=== PATIENT | female | born 1995 | race African-American/Black ===

== ENCOUNTER 2023-05-17 01:48 | Emergency (ER) | payer OTHER, SELFPAY ==
[2023-05-17] MEDS ORDERED: fentaNYL 50 mcg/mL 1 mL Vial ONE (01:58)
[2023-05-17] MEDS ORDERED: Sulfameth/Trimethoprim DS 800-160mg TAB ONE (01:58)
[2023-05-17] MEDS ORDERED: Boostrix 0.5 ML (Tdap) VIAL (>/=7 yrs of age) ONE (01:59)
== END 2023-05-17 03:30 | disposition home or self-care (01) ==
LOC: EEVIPCON 01:48 → CSHERS 01:48
DX: S91.032A Puncture wound without foreign body, left ankle, initial encounter (principal); X94.0XXA Assault by shotgun, initial encounter; Y93.01 Activity, walking, marching and hiking
CPT/HCPCS: 90471; 90715; 96374; J3010

== ENCOUNTER 2023-05-22 14:35 | Outpatient (CLI) | payer OTHER | END 2023-05-22 14:36 | disposition home or self-care (01) | LOC: CSHWCC 14:35 | PROVIDERS: ATTEND Physician Assistant | DX: L97.302 Non-pressure chronic ulcer of unspecified ankle with fat layer exposed (principal); X93.XXXS Assault by handgun discharge, sequela | CPT/HCPCS: 99214; G0463 ==

== ENCOUNTER 2023-05-30 13:06 | Outpatient (CLI) | payer OTHER | END 2023-05-30 13:07 | disposition home or self-care (01) | LOC: CSHWCC 13:06 | PROVIDERS: ATTEND Physician Assistant | DX: L97.302 Non-pressure chronic ulcer of unspecified ankle with fat layer exposed (principal); X93.XXXS Assault by handgun discharge, sequela | CPT/HCPCS: 97597 ==

== ENCOUNTER 2023-06-05 15:23 | Outpatient (CLI) | payer SELFPAY | END 2023-06-05 15:24 | disposition home or self-care (01) | LOC: CSHWCC 15:23 | PROVIDERS: ATTEND Physician Assistant | DX: L97.302 Non-pressure chronic ulcer of unspecified ankle with fat layer exposed (principal); X93.XXXS Assault by handgun discharge, sequela | CPT/HCPCS: 99211; G0463 ==

== ENCOUNTER 2023-06-26 15:33 | Outpatient (CLI) | payer SELFPAY | END 2023-06-26 15:34 | disposition home or self-care (01) | LOC: CSHWCC 15:33 | PROVIDERS: ATTEND Preventive Medicine Undersea and Hyperbaric Medicine | DX: L97.302 Non-pressure chronic ulcer of unspecified ankle with fat layer exposed (principal); X93.XXXS Assault by handgun discharge, sequela | CPT/HCPCS: 11042 ==